=== PATIENT | female | born 1955 | race African-American/Black ===

== ENCOUNTER → 2022-09-12 11:57 | Outpatient (CLI) | payer MEDICARE, SELFPAY ==
--- NOTE | ~2022-09-12 | MR_ITS ---
EXAMINATION: MR shoulder LT wo/w con DATE: 09/12/2022 13:04 INDICATION: Chronic left shoulder pain TECHNIQUE: Magnetic resonance imaging (MRI) of the left shoulder was performed without intravenous co ntrast. Sequences included axial PD-weighted FS FSE, coronal oblique PD-weighted FS FSE, coronal obli que T2-weighted FS FSE, sagittal PD-weighted FS FSE, and sagittal T1-weighted SE. COMPARISON: None. FINDINGS: Coracoacromial arch: The acromion undersurface is curved in morphology (type II). The coracoacromial ligament is normal. T here is widening of the acromioclavicular joint with subarticular cystic change versus erosions at th e lateral head of the right clavicle. Coracoclavicular ligament is normal. Rotator cuff: Mild tendinopathy of the supraspinatus tendon, anterior infraspinatus tendon and cephalad subscapular is tendon, all without evident tear. The teres minor tendon is normal. Normal rotator cuff muscle bul k and signal. Biceps tendon, glenoid labrum and glenohumeral cartilage: Long head of the biceps tendon is normal. Moderate glenohumeral osteoarthritis with regions of at the chondral fissuring and full/near full-thickness chondral ulceration along the humeral head. The larg est region of chondral ulceration measures 1.8 x 0.8 cm along the medial to superomedial aspect of th e humeral head. Small osteophytes and cystic and edema-like signal changes along the posteriorly at t he junction of the articular surface and the posterior facet of the greater tuberosity. Additional de ep chondral ulceration without degenerative subchondral changes at the central aspect of the glenoid and with underlying cortical irregularity and cystlike and edema-like signal changes at the anteroinf erior quadrant of the glenoid. Tearing of the cephalad half of the glenoid labrum. Small marginal ost eophytes along the inferior aspect of the humeral head and glenoid. Fluid: Small glenohumeral joint effusion with proportional extension of a small amount of fluid along the lo ng head biceps tendon sheath. No loose osteochondral bodies. Mild increased fluid signal along the valentin bacromial/subdeltoid bursa consistent with mild bursitis. Bones: Bone alignment is normal. No fracture or pathologic marrow replacing process. IMPRESSION: 1. Moderate glenohumeral osteoarthritis with scattered deep chondral ulceration. 2. Tearing at the cephalad half of the glenoid labrum. 3. Subarticular cystic change versus erosions at the lateral head of the right clavicle widening of t he acromioclavicular joint. This could represent either osteoarthritis with widening of the joint spa ce related to chronic acromioclavicular joint separation or osteoarthritic remodeling of the distal c lavicle versus less likely an inflammatory arthritis. 0.4. Mild subscapularis, supraspinatus and infr aspinatus tendinopathy without tear. Reviewed, dictated and finalized at location A. [facility] IMPRESSION: 1. Moderate glenohumeral osteoarthritis with scattered deep chondral ulceration . 2. Tearing at the cephalad half of the glenoid labrum. 3. Subarticular cystic change versus erosions at the lateral head of the right clavicle widening of the acromioclavicular joint. This could represent either o steoarthritis with widening of the joint space related to chronic acromioclavic ular joint separation or osteoarthritic remodeling of the distal clavicle versu s less likely an inflammatory arthritis. 0.4. Mild subscapularis, supraspinatus and infraspinatus tendinopathy without tear.
== END ==
PROVIDERS: PCP Internal Medicine
DX: M19.012 Primary osteoarthritis, left shoulder (principal); S43.492A Other sprain of left shoulder joint, initial encounter; X58.XXXA Exposure to other specified factors, initial encounter
CPT/HCPCS: 73223; A9577